=== PATIENT | female | born 1955 | race Caucasian/White ===

== ENCOUNTER 2016-12-23 20:24 | Emergency (ER) | payer OTHER ==
[~2016-12-23] VITALS: Ht 165.1 cm; Wt 108.9 kg
--- NOTE | ~2016-12-23 | EKG ---
[place] [address] [address] [facility] [place] [address] ELECTROCARDIOGRAM REPORT Name: MARELY DUGAN [facility]OUR[facility]andrakant[facility] [id number] Admission: 12/23/16 Attend Phys: Discharge: 12/23/16 Date of : 59 Report #: [id number] THIS REPORT FOR: //name// [facility] ED Test Date: 2016-12-23 Test Time: 20:41:45 Pat Name: MARELY DUGAN Department: Room: Gender: F Supervisory Lifeguard: Araceli GAGE : 1955 Requested By: Michael Roberts Order Number: [id number] MD: Danish Garza Measurements Intervals [place] Rate: 80 P: 55 PA: 158 QRS: 26 QRSD: 98 T: -3 QT: 350 QTc: 404 Interpretive Statements Sinus rhythm Low voltage, precordial leads Nonspecific ST segment abnormality Baseline wander in lead(s) V5,V6 No previous ECG available for comparison Electronically Signed On 12-25-2016 7:57:59 CDT by Danish Garza [email or web address] <ELECTRONICALLY SIGNED> By: Danish Garza MD, [facility] 12/25/16 [id number] 40 40 Danish Garza MD, [facility] /EPI
[2016-12-23] MEDS ORDERED: COZAAR 25 MG TA25 M1 PO (20:55)
[2016-12-23] MEDS ORDERED: NITROFURANTOIN100 MG PO (20:56)
[2016-12-23 21:14] LABS: ABSOLUTE NEUTROPHILS 5.8 thou/uL (1.4-8.2); BASOPHILS 0.3 % (0.0-2.0); EOSINOPHILS 1.3 % (0.0-3.0); HEMATOCRIT 41.1 % (37.0-47.0); HEMOGLOBIN 13.8 gm/dL (12.0-15.0); LYMPHOCYTES 27.1 % (24.0-44.0); MCH 29.4 pg (26.0-34.0); MCHC 33.7 g/dL (28.0-37.0); MCV 87.2 fL (80.0-100.0); MONOCYTES 6.5 % (1.0-8.0); PLATELET COUNT 232 thou/uL (150-400); POLYS 64.8 % (36.0-66.0); RBC 4.71 mil/uL (4.20-5.00); RDW 13.2 % (10.5-14.5); WBC 8.9 thou/uL (4.0-11.0)
[2016-12-23 21:20] LABS: ANION GAP 10 mmol/L (7-16); BUN 14 mg/dL (7-18); CALCIUM 9.5 mg/dL (8.5-10.1); CHLORIDE 104 mmol/L (98-107); CO2 27 mmol/L (21-32); CREATININE 0.7 mg/dL (0.6-1.0); GLUCOSE 94 mg/dL (74-106); POTASSIUM 3.5 mmol/L (3.5-5.1); SODIUM 141 mmol/L (136-145)
[2016-12-23 21:22] LABS: MANUAL DIFF NO
[2016-12-23 21:28] LABS: TROPONIN-I < 0.04 ng/mL (<0.04-0.07)
[2016-12-23] MEDS ORDERED: PROVENTIL HFA6.7 G1 INH (22:01)
[2016-12-23] MEDS ORDERED: PREDNISONE 20 M20 MG PO (22:01)
[2016-12-23 22:25] VITALS: BP 150/84
== END 2016-12-23 22:26 | disposition home or self-care (01) ==
LOC: ER 20:24
PROVIDERS: Physician Assistant
DX: J45.909 Unspecified asthma, uncomplicated (principal); I10 Essential (primary) hypertension; E66.9 Obesity, unspecified; Z90.49 Acquired absence of other specified parts of digestive tract; Z87.442 Personal history of urinary calculi; Z88.0 Allergy status to penicillin; Z88.2 Allergy status to sulfonamides